=== PATIENT | female | born 1965 | race Hispanic/Latino ===

== ENCOUNTER 2021-07-22 08:28 | Outpatient (CLI) | payer OTHER | END 2021-07-22 08:29 | disposition home or self-care (01) | LOC: BICRAD 08:28 | PROVIDERS: ATTEND Family Medicine | DX: M25.561 Pain in right knee (principal); M17.11 Unilateral primary osteoarthritis, right knee ==

== ENCOUNTER 2023-05-10 09:06 | Emergency (ER) | payer SELFPAY ==
[2023-05-10] MEDS ORDERED: Benzonatate 100 MG CAP ONE (09:44)
[2023-05-10 11:17] LABS: SARS-CoV-2 NAA Rapid Test DETECTED (NotDetected)
== END 2023-05-10 10:56 | disposition home or self-care (01) ==
LOC: ERS 09:06
DX: J06.9 Acute upper respiratory infection, unspecified (principal); J32.9 Chronic sinusitis, unspecified; E03.9 Hypothyroidism, unspecified; Z20.822 Contact with and (suspected) exposure to COVID-19
CPT/HCPCS: 71045